=== PATIENT | female | born 2000 ===

== ENCOUNTER 2022-04-30 06:41 | Day surgery (SDC) | payer SELFPAY ==
[2022-04-30] MEDS ORDERED: Midazolam 1 MG/ML 2 ML SDV ONE (07:29)
[2022-04-30] MEDS ORDERED: fentaNYL 100 MCG/2 ML SDV ONE (07:29)
[2022-04-30] MEDS ORDERED: Propofol 200 MG/20 ML SDV ONE (07:29)
[2022-04-30] MEDS ORDERED: Lactated Ringers 1,000 ML IV SCH (07:30)
== END 2022-04-30 09:45 | disposition home or self-care (01) ==
LOC: JP.SDS 06:41
PROVIDERS: ATTEND Student in an Organized Health Care Education/Training Program
DX: K29.50 Unspecified chronic gastritis without bleeding (principal)
CPT/HCPCS: 43239; 81025; 87081; J2250; J2704; J3010; J7120; 88305